=== PATIENT | male | born 1985 | race Caucasian/White ===

== ENCOUNTER 2025-01-21 20:40 | Emergency (ER) | payer MEDICARE, SELFPAY ==
[2025-01-21 21:03] VITALS: BP 145/87; PULSE 105; RESP 18; TEMP 36.7; O2SAT 98; BMI 20.3
--- NOTE | 2025-01-21 23:02 | ED_ITS ---
HPI - General Adult General Chief complaint: Neck Injury/Pain Stated complaint: Fall last PM, head/neck pain Time Seen by Provider: 01/21/25 23:02 History of Present Illness HPI narrative: Fell last night - head hit wall behind him No LOC This morning right neck pain so bad he had to roll out of bed. Neck spasms, cannot look right and is tense There is a crunching sound when I turn my head when I can Headache Denies nausea, vomiting 39-year-old man presenting to the emergency department with concern of pain in his neck. Last night was moving an air conditioner and fell striking his right side neck he thinks on the corner of the wall. There was no loss of conscious ness. Certainly had pain at that time. This morning though was pain was so intense it a get up on his knees and roll out of bed. Particularly hurts to rotate his head to the right but also somewhat to the left. He also hears a crunching sound when he turns his head. He is not having radiation down his arms. Related Data Home Medications ?Medication ?Instructions ?Recorded ?Confirmed No Known Home Medications 01/21/2512/29 Allergies Allergy/AdvReac Type Severity Reaction Status Date / Time haloperidol (From Haldol) AdvReac Verified 01/21/25 21:10 risperidone AdvReac Verified 01/21/25 21:10 seafood Allergy Uncoded 01/21/25 21:10 Review of Systems Status of ROS: Reports: 6 or more systems reviewed and unremarkable except as noted in History and below Exam Narrative: Exam Narrative: Pleasant. Slim. Numerous tattoos. Well-healed self-inflicted scars on both forearms. Has good range of motion at his shoulders. Limited to about 30? of rightward rotation of the neck. Flexion to the right in particular exacerbating his pain. Is not hip aesthetic to exam. It is sore to palpation in the right trapezius but more so the right mid neck. No clear midline neck tenderness. He protects also extension of his neck. Const: Vital Signs, click to edit/add: Vital Signs - 24 hr 01/21/25 21:03 01/21/25 23:43 01/22/25 00:55 Temperature 98.0 F 98.0 F 98.0 F Pulse Rate [Pulse Oximeter] 105 H 90 Respiratory Rate 18 18 Blood Pressure [Ri ght Upper Arm] 145/87 H 135/74 Pulse Oximetry 98 98 Oxygen Delivery Me thod Room Air Room Air 01/22/25 00:56 Temperature 98.0 F Pulse Rate [Pulse Oximeter] 90 Respiratory Rate 18 Blood Pressure [Ri ght Upper Arm] 135/74 Pulse Oximetry Oxygen Delivery Me thod Documenting provider has reviewed patient's vital signs: yes Course Vital Signs Vital signs: Initial Vital Signs Temperature 98.0 F 01/21/25 21:03 Temperature Source Temporal Artery Scan 01/21/25 21:03 Pulse Rate 105 H 01/21/25 21:03 Respiratory Rate 18 01/21/25 21:03 Blood Pressure 145/87 H 01/21/25 21:03 Blood Pressure Mean 106 H 01/21/25 21:03 Blood Pressure Position Sitting 01/21/25 21:03 Pulse Oximetry 98 01/21/25 21:03 Oxygen Delivery Method Room Air 01/21/25 21:03 Vital Signs Temperature 98.0 F 01/21/25 21:03 Pulse Rate 105 H 01/21/25 21:03 Respiratory Rate 18 01/21/25 21:03 Blood Pressure 145/87 H 01/21/25 21:03 Pulse Oximetry 98 01/21/25 21:03 Oxygen Delivery Method Room Air 01/21/25 21:03 Temperature 98.0 F 01/22/25 00:56 Pulse Rate 90 01/22/25 00:56 Respiratory Rate 18 01/22/25 00:56 Blood Pressure 135/74 01/22/25 00:56 Pulse Oximetry 98 01/22/25 00:55 Oxygen Delivery Method Room Air 01/22/25 00:55 Medications Administered Medications: Discontinued Medications Generic Name Dose Route Start Last Admin Trade Name Freq PRN Reason Stop Dose Admin Ibuprofen 800 mg 01/21/25 23:38 01/21/25 23:43 Ibuprofen 400 Mg Tablet PO 01/21/25 23:39 800 mg ONCE ONE Administration Medical Decision Making MDM Narrative Medical decision making narrative: Given this trauma I think it would be prudent image with CT. At a minimum has a neck strain but as described certainly could have a fracture some evidence of instability with ligamentous disruption. Offered a soft collar which he would appreciate as well as ibuprofen. Due to IT difficulties this evening I am unable to view images this evening. However radiology over-read below. Study:?CT-Spine Cervical W/O-01/22/2025 12:10:01 AM Ordering Physician:PEDRO Final Report: Indication: Neck injury with mild right pain, impact yesterday Technique: Noncontrast CT through the cervical spine with multiplanar reformats Comparison: None Findings: Alignment: Nonspecific reversal of the normal lordotic curvature. Mild leftward spinal curvature. Bones: No acute fracture. No lytic or blastic lesion. Cervical levels: No acute abnormality appreciated. Mild spondylosis. Soft tissues: No acute abnormality appreciated. Impression: No acute abnormality appreciated. On reassessment he does report feeling better. Feels like the soft collar is helpful. See patient discharge plan for further discussion Feel free to wear the soft collar over this next week for comfort. Can take up to 800 mg of ibuprofen or up to 1000 mg of acetaminophen per dose. If really needed I am prescribing some [place] from [facility]. Remember that each tablet of [place] contains 325 mg of acetaminophen in addition to 5 mg of hydrocodone. Also prescribing prednisone and cyclobenzaprine as discussed. Can do gentle neck pull-down stretches as demonstrated. Otherwise see handout on stretches for the upper back as well. Follow-up if not improved in a week. Discharge Plan Discharge Clinical Impression: Strain of neck muscle Patient Disposition: Home, Self-Care Condition: Improved Additional Instructions: Feel free to wear the soft collar over this next week for comfort. Can take up to 800 mg of ibuprofen or up to 1000 mg of acetaminophen per dose. If really needed I am prescribing some [place] from [facility]. Remember that each tablet of [place] contains 325 mg of acetaminophen in addition to 5 mg of hydrocodone. Also prescribing prednisone and cyclobenzaprine as discussed. Can do gentle neck pull-down stretches as demonstrated. Otherwise see handout on stretches for the upper back as well. Follow-up if not improved in a week. Prescriptions: No Action No Known Home Medications Follow Up/Referrals: Provider,Not a Local [Primary Care Provider, Family Practice] Stand Alone Forms: [employer] Info Instructions
--- NOTE | 2025-01-21 23:38 | CT_ITS ---
Patient: SLICK KELLEY Facility:?[facility] Patient ID:?[id number] Site Patient ID:?[id number]. Site :?1985 Study:?CT-Spine Cervical W/O-01/22/2025 12:10:01 AM Ordering Physician:PEDRO Final Report: Indication: Neck injury with mild right pain, impact yesterday Technique: Noncontrast CT through the cervical spine with multiplanar reformats Comparison: None Findings: Alignment: Nonspecific reversal of the normal lordotic curvature. Mild leftward spinal curvature. Bones: No acute fracture. No lytic or blastic lesion. Cervical levels: No acute abnormality appreciated. Mild spondylosis. Soft tissues: No acute abnormality appreciated. Impression: No acute abnormality appreciated. Please note that all CT scans at this facility use dose modulation, iterative reconstruction, and/or weight-based dosing when appropriate to reduce radiation dose to as low as reasonably achievable. Dictated by Augusto Dickens MD @ 01/22/2025 12:13:58 AM Signed by:?Augusto Dickens MD @01/22/2025 12:13:58 AM (Electronic Signature)
[2025-01-21 23:43] VITALS: TEMP 36.7
[2025-01-21] MEDS: IBUPROFEN 400 MG TABLET 800 MG PO (23:43)
--- OUTSIDE RECORDS SUMMARY | 2025-01-21 23:48 | XMS_ITS | Clinical Summary ---
Author Organization [place] Address [address] [facility] [place] [address] Care Team Providers Care Tree Chipper Name Role Phone No Ref-Primary, Physician Primary Care Provider Angelika Gómez APRN [employer] Unavailable [phone] Allergies Active Allergy Reactions Criticality Noted Date Comments Fish Oil Diarrhea 04/27/2008 Other reaction(s): Vomiting Haloperidol Other (See Comments) 11/03/2009 Dystonic reaction Iodine 11/03/2009 Risperidone Muscle Pain (Myalgia),Other (See Comments) High 02/08/2015 Extra pyramidal side effects Shellfish Allergy Diarrhea,Other (See Comments) High 04/27/2008 Medications * This document contains information received from the source organization and may not represent a complete record from that organization. naloxone (NARCAN) 4 MG/0.1ML nasal sprayIndications :Opioid use disorder, severe, dependence (H) [place] 1 spray (4 mg) into one nostril alternating nostrils as needed every 2-3 minutes until assistance arrives 0.2 mL 2 Active Additional Information Patient not taking.Reported on 05/09/2022 buprenorphine ER (SUBLOCADE) 300 MG/1.5ML prefilled syringe Inject 300 mg Subcutaneous every 30 days Active OLANZapine (ZYPREXA) 5 MG tablet 2 Active venlafaxine (EFFEXOR-ER) 150 MG 24 hr tabletIndication s:Bipolar affective disorder, remission status unspecified (H) Take 1 tablet (150 mg) by mouth daily 30 tablet 1 3 Active naproxen sodium 220 MG capsuleIndicatio ns:Pain Take 220 mg by mouth 2 times daily as needed PRN 100 capsule 3 3 Active naloxegol 25 MG TABS tabletIndication s:Therapeutic opioid-induced constipation (OIC) Take 1 tablet (25 mg) by mouth every morning (before breakfast) 60 tablet 1 4 Active buPROPion (WELLBUTRIN XL) 150 MG 24 hr tabletIndication s:Stimulant use disorder Take 3 tablets (450 mg) by mouth every morning 90 tablet 1 4 Active polyethylene glycol (MIRALAX) 17 GM/Dose powderIndication s:Therapeutic opioid-induced constipation (OIC) Take 17 g by mouth daily 578 g 2 4 Active buprenorphine HCl-naloxone HCl (SUBOXONE) 8-2 MG per filmIndications: Opioid use disorder, severe, dependence (H) Place 0.5-1 film under the tongue daily as needed (opioid cravings or withdrawal symptoms) 7 Film 4 Active Active Problems Problem Noted Date Diagnosed Date Opioid use disorder, severe, dependence 03/08/20 Stimulant use disorder 03/08/2022 Tobacco use disorder 03/08/2022 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, in remission 02/20/2008 Immunizations Immunization Administration Dates Next Due Td,adult,historic,unspecified 10/23/2006 Social History Tobacco Use Types Packs/Day Years Used Date Smoking Tobacco: Former Cigarettes Vaping Device Smokeless Tobacco: Current Tobacco Cessation:Ready to Q uit: Not Asked; Counseling Given: Not Answered Comments:Currently vaping nicotine Alcohol Use Standard Drinks/Week Comments Not Currently 0 (1 standard drink = 0.6 oz pur e alcohol) PHQ-2 Answer Date Recorded PHQ-2 Score 0 05/09/2023 Adolescent Education Answer Date Record ed Getting School Help Needed Not on file 05/02 Sex and Gender Information Value Date Recorded Sex Assigned at Not on file Legal Sex Male 4:20 AM [employer] Gender Identity Not on file Sexual Orientation Not on file Last Filed Vital Signs Vital Sign Reading Time Taken Comments Blood Pressure 116/79 02/25/2024 9:53 AM CDT Pulse 80 02/25/2024 9:53 AM CDT Temperature 36.7 C (98 F) 01/23/2024 11:28 AM CDT Respiratory Rate 14 12/26/2023 2:22 PM CDT Oxygen Saturation 100% 12/26/2023 2:22 PM CDT Inhaled Oxygen Concentration - - Weight 70.9 kg (156 lb 4.8 oz) 09/27/2022 7:34 P M [employer] Height 188 cm (6' 2) 09/27/2022 7:34 PM [employer] Body Mass Index 20.07 09/27/2022 7:34 PM [employer] Plan of Treatment Health Maintenance Due Date Last Done Comments ADVANCE CARE PLANNING 1985 ANNUAL REVIEW OF HM ORDERS 1983 CONTROLLED SUBSTANCE AGREEMENT FOR CHRONIC PAIN MANAGEMENT 1983 DIABETES SCREENING 1983 MEDICARE ANNUAL WELLNESS VISIT 2001 HEPATITIS A VACCINE (1 of 2 - Risk 2-dose series) 2002 HEPATITIS B VACCINE (2 of 3 - 19+ 3-dose series) 02/07/2022 01/10/2022 NARCISO ASSESSMENT 07/10/2023 07/10/2022 LIPID 2023 08/18/2009, 07/12/2009 PHQ-9 10/07/2023 10/06/2022, 11/0 01/2022, 05/09/2022, Additional history exists URINE DRUG SCREEN 10/07/2023 10/06/2022, , 06/05/2022 COVID-19 VACCINE ( season) 2024 12/21/2021, 07/06/2021, 06/08/2021 PHQ-2 (once per calendar year) 2024 05/09/2023, 10/06/2022, 10/06/2022, Additional history exists INFLUENZA VACCINE (Season Ended) 2025 09/16/2009 DTAP/TDAP/TD VACCINE (5 - Td or Tdap) 12/22/2031 12/21/2021, 11/26/2013, 10/05/2011, Additional history exists ZOSTER VACCINE (1 of 2) 2033 HEPATITIS C SCREENING Completed 08/18/2009 HIV SCREENING Completed 12/21/2021, 08/18/2009 HPV VACCINE Aged Out No longer eligi ble based on patient's age to complete this topic MENINGITIS VACCINE Aged Out No longer eligible based on patient's age to complete this topic PNEUMOCOCCAL VACCINE: PEDIATRICS (0 to 5 YEARS) AND AT-RISK PATIENTS (6 to 49 YEARS) Aged Out No longer eligible based on patient's age to complete this topic Procedures Procedure Name Priority Date/Time Associated Diagnosis Comments URINE DRUG SCREEN CLINIC Routine 10/06/2022 4:11 PM [employer] Opioid use disorder, severe, dependence (H) Stimulant use disorder HIV ANTIGEN ANTIBODY COMBO Routine 08/18/2009 3:59 PM [employer] HEPATITIS C ANTIBODY Routine 08/18/2009 3:59 PM [employer] LIPID PROFILE Routine 08/18/2009 3:59 PM [employer] from Last 3 Months or Most Recently Relevant to Health Maintenance Results * (ABNORMAL) Urine Drugs of Abuse Screen Panel 13 (10/06/2022 4:11 PM [employer]PER) Pathologist [facility] Cannabinoids (00-ljp-8-carboxy -9-THC) Not Detected Not Detected, Indeterminate 10/06/2022 4:[address] [facility] Comment:Cutoff for a negativ e cannabinoid is 50 ng/mL or less. Phencyclidine Not Detected Not Detected, Indeterminate 10/06/2022 4:[address] [facility] Comment:Cutoff for a negativ e PCP is 25 ng/mL or less. Cocaine (Benzoylecgonine) Not Detected Not Detected, Indeterminate 10/06/2022 4:[address] [facility] Comment:Cutoff for a negativ e cocaine is 150 ng/ml or less. Methamphetamine (d-Methamphetamin e) Detected(A ) Not Detected, Indeterminate 10/06/2022 4:[address] [facility] Comment: Cutoff for a positive methamphetamine is greater than 500 ng/ml. This is an unconfirmed screening result to be used for medical purposes only. Opiates (Morphine) Not Detected Not Detected, Indeterminate 10/06/2022 4:[address] [facility] Comment:Cutoff for a negativ e opiate is 100 ng/ml or less. Amphetamine (d-Amphetamine) Detected(A ) Not Detected, Indeterminate 10/06/2022 4:[address] [facility] Comment: Cutoff for a positive amphetamine is greater than 500 ng/ml. This is an unconfirmed screening result to be used for medical purposes only. Benzodiazepines (Nordiazepam) Not Detected Not Detected, Indeterminate 10/06/2022 4:[address] [facility] Comment:Cutoff for a negativ e benzodiazepine is 150 ng/ml or less. Tricyclic Antidepressants (Desipramine) Not Detected Not Detected, Indeterminate 10/06/2022 4:[address] [facility] Comment:Cutoff for a negativ e tricyclic antidepressant is 300 ng/ml or less. Methadone Not Detected Not Detected, Indeterminate 10/06/2022 4:[address] [facility] Comment:Cutoff for a negativ e methadone is 200 ng/ml or less. Barbiturates (Butalbital) Not Detected Not Detected, Indeterminate 10/06/2022 4:[address] [facility] Comment:Cutoff for a negativ e barbituate is 200 ng/ml or less. Oxycodone Not Detected Not Detected, Indeterminate 10/06/2022 4:[address] [facility] Comment:Cutoff for a negativ e oxycodone is 100 ng/mL or less. Propoxyphene (Norpropoxyphene) Not Detected Not Detected, Indeterminate 10/06/2022 4:[address] [facility] Comment:Cutoff for a negativ e propoxyphene is 300 ng/ml or less. Buprenorphine Detected(A ) Not Detected, Indeterminate 10/06/2022 4:[address] [facility] Comment: Cutoff for a positive buprenorphine is greater than 10 ng/ml. This is an unconfirmed screening result to be used for medical purposes only. Urine URINE SPECIMEN OBTAINED BY CLEAN CATCH PROCEDURE / Unknown Non-blood Collection / Unknown 10/06/2022 4:11 PM [employer] 10/06/2022 4:11 PM [employer] us Angelika Gómez APRN [employer] LAB - URINE ORDERABLES Fin al Result RD LABORAT[facility] [address] [place] [address] [address] [place] [address], [facility] [phone] * HIV Antigen Antibody Combo (08/18/2009 3:59 PM [employer] WR[employer]PER) [facility] HIV Antigen Antibody Combo Negative 08/18/2009 3:59 PM [employer] 08/18/2009 3:59 PM [employer] 08/18/2009 3:59 PM [employer] Narrative O LAB - 08/18/2009 3:59 PM [employer] Effective 05/26/10, methodology is HIV 1/2 Antigen/Antibody Combination. Prior to 05/26/10, methodology was HIV 1/2 Antibody only. Babar Freed MD LAB - BLOOD ORDERABLES Final Re sult Performing Organization Address [facility] Co de Phone Number [facility] [address] [address], [facility] [address] [address] * (ABNORMAL) Lipid Profile (08/18/2009 3:59 PM [employer] WR[employer]PER) [facility] Triglycerides 246(H) <150 mg/dL 08/18/2009 3:59 PM [employer] [facility] LDL Cholesterol Calculated 84 <130 mg/dL 08/18/2009 3:59 PM [employer] [facility] Direct Measure HDL 34(L) >39 mg/dL 2009 3:59 PM [employer] [facility] Cholesterol 167 <200 mg/dL 08/18/2009 3:59 PM [employer] [facility] 08/18/2009 3:59 PM [employer] 08/18/2009 3:59 PM [employer] Babar Freed MD LAB - BLOOD ORDERABLES Final Re sult Performing Organization Address [facility]/ZIP Co de Phone Number [facility] [address] [address], [facility] [address] [address] * Hepatitis C antibody (08/18/2009 3:59 PM [employer] WR[employer]PER) [facility] Hepatitis C Antibody Negative (Negative) 08/18/2009 3:59 PM [employer] [facility] 08/18/2009 3:59 PM [employer] 08/18/2009 3:59 PM [employer] us Babar Freed MD LAB - BLOOD ORDERABLES Final Re sult [facility] [address] [place] [id number], [place] M [facility] [address] [place] [phone] from Last 3 Months or Most Recently Relevant to Health Maintenance Insurance [place] [address] [place] [id number] [facility] [place] [address] OTHER ATTN: DARIEL OCAMPO [id number] MEDICARE [facility] Care Teams Tree Chipper Relationship Specialty Start Date End Date No Ref-Primary, Physician PCP - General 04/23/19 Angelika Gómez APRN [facility] [facility] [address] [place], [place] [id number] Assigned Behavioral Health Provider 01/19/25
[2025-01-22 00:55] VITALS: BP 135/74; PULSE 90; RESP 18; TEMP 36.7; O2SAT 98
[2025-01-22 00:56] VITALS: BP 135/74; PULSE 90; RESP 18; TEMP 36.7
== END 2025-01-22 00:56 | disposition home or self-care (01) ==
PROVIDERS: Emergency Provider Family Medicine
DX: S16.1XXA Strain of muscle, fascia and tendon at neck level, initial encounter (principal)
CPT/HCPCS: 72125; 99284; A9270